=== PATIENT | female | born 1975 | race Caucasian/White ===

== ENCOUNTER 2024-08-26 17:43 | Emergency (ER) | payer BC, SELFPAY ==
[2024-08-26 17:47] VITALS: BP 112/71; PULSE 84; RESP 18; TEMP 36.9; O2SAT 95; BMI 26.2
--- NOTE | 2024-08-26 18:20 | PC.NURSE ---
[facility] AT BEDSIDE
--- NOTE | 2024-08-26 18:27 | ECG_ITS ---
APPROVED REPORT Exam: Resting ECG HR:86 bpm ECG Measurements Heart Rate 86 AXES AK 125 P 68 QRSd 90 QRS 67 QT 353 T 54 QTc 397 Conclusion SINUS RHYTHM POSSIBLE RIGHT ATRIAL ENLARGEMENT [0.25mV P-WAVE] POSSIBLE LEFT ATRIAL ENLARGEMENT [-0.1mV P-WAVE IN V1/V2] BORDERLINE ECG Electronically signed by : [place] PARDO, 08/27/2024 00:37:25
[2024-08-26 18:41] LABS: Coronavirus 19, PCR Not Detected (NotDetected); Influenza A, PCR Not Detected (NotDetected); Influenza B, PCR Not Detected (NotDetected)
[2024-08-26 18:45] LABS: Basophils # 0.1 K/mm3 (0-0.2); Basophils % 1.3 % (0.1-2.0); Eosinophils # 0.5 K/mm3 (0.0-0.4); Eosinophils % 5.9 % (0.1-12.0); Hematocrit 44.2 % (37.0-47.0); Hemoglobin 15.2 g/dL (12.2-16.2); Lymphocytes # 3.1 K/mm3 (0.7-4.5); Lymphocytes % 39.3 % (10-50); Mean Corpuscular HGB Conc 34.4 g/dL (31.8-35.4); Mean Corpuscular Volume 93.1 fl (81-99); Mean Platelet Volume 9.9 fl (7.4-10.4); Monocytes # 0.4 K/mm3 (0.1-1.0); Monocytes % 4.8 % (1.7-9.3); Neutrophils # 3.8 K/mm3 (1.8-7.8); Neutrophils % 48.4 % (37.0-80.0); Platelet Count 342 K/mm3 (142-424); Red Blood Count 4.75 M/mm3 (4.20-5.40); Red Cell Distribution Width 13.6 % (11.5-17.5); White Blood Count 7.9 K/mm3 (4.8-10.8)
[2024-08-26] MEDS: 0.9 % SODIUM CHLORIDE 1000ML 1,000 ML 999 ML IV (18:49)
[2024-08-26] MEDS: ACETAMINOPHEN 1,000MG/100ML VIAL 1000 MG IV (18:49)
[2024-08-26] MEDS: ALUMINUM/MAGNESIUM/SIMETHICONE 30ML UDC 30 ML PO (18:49)
--- NOTE | 2024-08-26 18:49 | ED_ITS ---
Discharge Plan Disposition Patient Disposition: Home, Self-Care Referrals Follow up/Referrals: Georgina Henry APRN [Primary Care Provider] - See instructions Nelson Burnham MD [Staff Physician] - See instructions Activity Restrictions/Add. Instructions Additional Instructions/Restrictions: At this time it was felt you are safe to be discharged home. If new or worsening symptoms please do not hesitate to return the emergency department. As discussed if your symptoms persist or get worse in any way please follow-up with your family doctor, if they get worse you come back and see me immediately. Please call and schedule appoint with Dr. Burnham for evaluation of your chest pain. Clinical Impressions Clinical Impression: Benign paroxysmal positional vertigo, Dizziness, Chest pain Print Language Print Language: Occitan Discharge ED Provider: Sam Caceres General Adult HPI <Agustina Hummel (ED), MANAGER TRAINING [employer] DEVELOPMENT - Last Filed: 08/26/24 21:39> General Chief complaint: Dizziness Stated complaint: dizzy , headache,nausea Time Seen by Provider: 08/26/24 18:13 Mode of Arrival: Wheelchair Source of Information: Patient and Spouse Limitations: No Limitations Description of Symptoms (Recalled from ER Triage Doc. by RN): PT REPORTS WAKING WITH DIZZINESS, RECENT SORE THROAT, CONGESTION, RUNNY NOSE AND COUGHING SINCE WEDNESDAY. PT REPORTS FEVER. REPORTS HEAVINESS IN HER CHEST THAT RADIATES DOWN THE BACK OF HER RIGHT ARM, REPORTS FREQUENT HEARTBURN FOR A LONG TIME History of Present Illness HPI narrative: This is a 49-year-old female who presents to the ED after she woke up this morning with dizziness. She says she started on with sore throat, congestion, runny nose and coughing. She had a fever earlier in the week. She has some heaviness in her chest now and radiating down the back of her right arm. She has had heartburn as well. She has no history of heart disease, no hypertension and no lung disease. She has had a spinal cord injury from lifting. She has had a neck fusion. She typically has a low blood pressure. No other associated signs or symptoms. Related Data Allergies Allergy/AdvReac Type Severity Reaction Status Date / Time tomato Allergy Other Verified 08/26/24 18:31 PFSH <Agustina Hummel (ED), MANAGER TRA[employer]ING [employer] DEVELOPMENT - Last Filed: 08/26/24 21:39> PFSH Disclaimer: The information contained in this section may have been updated after the patient was seen, as this information can be updated by other users. Social History (Updated 08/26/24 @ 20:42 by Agustina Hummel (ED), MANAGER TRA[employer]ING [employer] DEVELOPMENT) Smoking Status: Current every day smoker alcohol intake: former current occupational status: other Travel in the last 8 weeks: None Have you lived/traveled outside US in past 30 days?: No Contact w/someone who lives/traveled outside US past 30 days?: No Exposure to someone with infectious disease in past 14 days?: No Do you have a fever (greater than 100.4 F or 38 C)?: No Have you tested positive for COVID-19: No Exposed to someone with COVID-19 in past 14 days?: No Do you have a sore throat?: No Do you have a cough?: No Do you have any weakness?: Yes Do you have any diarrhea?: No Are you experiencing any unusual bleeding?: No Do you have any muscle aches/pain?: No Do you have any abdominal pain?: No Are you experiencing loss of taste or smell?: No <Agustina Hummel (ED), MANAGER TRAINING [employer] DEVELOPMENT - Last Filed: 08/26/24 21:39> ROS Obtained: Yes Systems reviewed as appropriate & no additional complaints except as documented Constitutional Constitutional: Reports as per HPI Physical Exam <Agustina Hummel (ED), MANAGER TRAINING [employer] DEVELOPMENT - Last Filed: 08/26/24 21:39> General General appearance: alert and anxious Head Head exam: normocephalic Eye Eye exam: Present normal appearance and PERRL ENT ENT exam: Present mucous membranes moist Neck Neck exam: Present normal inspection and trachea midline Chest Chest inspection: Present normal inspection and symmetric chest wall rise Respiratory Respiratory exam: Present normal lung sounds bilaterally Cardiovascular Cardiovascular exam: Present regular rate, normal rhythm, normal heart sounds, +S1 and +S2 Abdominal Exam Abdominal exam: Present soft and normal bowel sounds Extremities Exam Extremities exam: Present normal inspection and normal capillary refill Back Exam Back exam: Present full ROM Neurological Exam Neurological exam: Present alert, oriented X3 and normal gait Psychiatric Psychiatric exam: Present normal affect and normal mood Skin Skin exam: Present warm and dry Medical Decision Making <Agustina Hummel (ED), MANAGER TRA[employer]ING [employer] DEVELOPMENT - Last Filed: 08/26/24 21:39> Medical Records Screening: Per USPSTF and CDC recommendations, given the prevalence of disease in our region, it is our hospital?s policy to screen for HIV and viral Hepatitis for all patients aged 18 and over and those with ongoing risk factors. Todd Inquiry Pt receiving controlled substance: No Vital Signs: 08/26/24 17:47 08/26/24 19:00 08/26/24 19:30 Temperature 98.5 F Temperature Source Oral Pulse Rate 77 81 Pulse Rate [Apical] 84 Respiratory Rate 18 24 26 H Blood Pressure 94/63 L 116/78 Blood Pressure [Right Arm] 112/71 Blood Pressure Mean [Right Arm] 84 Blood Pressure Source [Right Arm] Automatic Cuff Blood Pressure Position [Right Arm] Sitting 02 Sat by Pulse Oximetry 95 93 L 94 L Oxygen Delivery Method Room Air 08/26/24 21:47 Temperature 98 F Temperature Source Pulse Rate 75 Pulse Rate [Apical] Respiratory Rate 18 Blood Pressure 124/80 Blood Pressure [Right Arm] Blood Pressure Mean [Right Arm] Blood Pressure Source [Right Arm] Blood Pressure Position [Right Arm] 02 Sat by Pulse Oximetry Oxygen Delivery Method Room Air Lab Data Lab Results 08/26/24 18:16: SARS-CoV-2 (PCR) Not detected, Influenza A Untype (PCR) Not detected, Influenza Type B (PCR) Not detected 08/26/24 18:30: WBC 7.9, RBC 4.75, Hgb 15.2, Hct 44.2, MCV 93.1, MCH 32.0 H, MCHC 34.4, RDW 13.6, Plt Count 342, MPV 9.9, Neut % (Auto) 48.4, Lymph % (Auto) 39.3, [place] % (Auto) 4.8, Eos % (Auto) 5.9, Baso % (Auto) 1.3, Neut # (Auto) 3.8, Lymph # (Auto) 3.1, [place] # (Auto) 0.4, Eos # (Auto) 0.5 H, Baso # (Auto) 0.1, Sodium 140, Potassium 3.7, Chloride 107, Carbon Dioxide 26, Anion Gap 10.7, BUN 15, Creatinine 1.00, Estimated Creat Clear 62, Estimated GFR 58 L, Est GFR ( Amer) 71, Glucose 95, Calcium 9.1, Magnesium 1.9, Total Bilirubin 0.3, AST 32, ALT 19, Alkaline Phosphatase 72, Troponin I < 0.01, Total Protein 7.4, Albumin 4.3, Globulin 3.1, Albumin/Globulin Ratio 1.4 08/26/24 18:30 08/26/24 18:30 Orders (Tests/Meds): ED MEDICATIONS Discontinued Medications Generic Name Dose Route Start Last Admin Trade Name Freq PRN Reason Stop Dose Admin Acetaminophen 1,000 mg 08/26/24 18:32 08/26/24 18:49 Acetaminophen 1,000mg/100ml Vial IV 08/26/24 18:33 1,000 mg ONCE ONE Administration Al Hydrox/Mg Hydrox/Simethicone 30 ml 08/26/24 18:32 08/26/24 18:49 Aluminum/Magnesium/Simethicone 30ml Udc PO 08/26/24 18:33 30 ml ONCE ONE Administration Aspirin 324 mg 08/26/24 19:10 08/26/24 19:17 Aspirin 81mg Chewable Tablet PO 08/26/24 19:11 324 mg ONCE ONE Administration Sodium Chloride 1,000 mls @ 999 mls/hr 08/26/24 18:32 08/26/24 18:49 Sod Chlor 0.9% 1000ml Bag IV 08/26/24 19:32 999 mls/hr .Q1H1M ONE Administration Iopamidol 80 ml 08/26/24 19:46 08/26/24 19:47 Iopamidol-370 (76%);100ml Bottle IV 08/26/24 19:47 80 ml ONCE ONE Administration Meclizine HCl 25 mg 08/26/24 21:17 08/26/24 21:29 Meclizine 25mg Tablet PO 08/26/24 21:18 25 mg ONCE ONE Administration Sodium Chloride 50 ml 08/26/24 19:46 08/26/24 19:48 0.9 % Sodium Chloride 50 Ml Vial IV 08/26/24 19:47 50 ml ONCE ONE Administration Sodium Chloride 10 ml 08/26/24 19:46 08/26/24 19:47 Sodium Chloride 0.9% 10ml Syr (Rad Only) IV 09/25/24 19:45 10 ml NEEDED PRN Administration Maintain IV Site ORDERS Category Date Time Status CTA Chest [CT angio chest - dissection] Stat Cat Scan 08/26/24 19:35 Completed CXR --portable [XR chest portable] Stat Exams 08/26/24 19:08 Completed Complete Blood Count Auto Diff Stat Lab 08/26/24 18:30 Completed Comprehensive Metabolic Panel Stat Lab 08/26/24 18:30 Completed D-Dimer Stat Lab 08/26/24 18:35 Received Magnesium Stat Lab 08/26/24 18:30 Completed Rapid PCR Covid and Flu A/B Stat Lab 08/26/24 18:16 Completed Troponin I Stat Lab 08/26/24 18:30 Completed Medical Decision Narrative: Insert review patient is a 49-year-old female presenting to the emergency department for evaluation of dizziness, chest pain that moves down her left arm. Patient is hemodynamically stable and nontoxic-appearing upon arrival, afebrile. Differential diagnosis includes vertigo, blood pressure changes, stroke, among others. Workup will be conducted with hematologic labs, specific imaging, provocative tests. Initial inventions include crystalloid bolus, labs. Initial workup reviewed by me and unremarkable. Imaging informally interpreted by me and remarkable for nothing acute. Formal imaging read remarkable see radiology report. Upon repeat evaluation patient's pain is improved, however patient continues to be dizzy. We did talk about vertigo and using meclizine to improve this vertigo. Also talked about reflux symptoms and taking Protonix or omeprazole continuously. I did have Dr. Caceres talk to the patient due to continued dizziness. See his note. <Sam Caceres MD - Last Filed: 08/27/24 00:12> Vital Signs: 08/26/24 17:47 08/26/24 19:00 08/26/24 19:30 Temperature 98.5 F Temperature Source Oral Pulse Rate 77 81 Pulse Rate [Apical] 84 Respiratory Rate 18 24 26 H Blood Pressure 94/63 L 116/78 Blood Pressure [Right Arm] 112/71 Blood Pressure Mean [Right Arm] 84 Blood Pressure Source [Right Arm] Automatic Cuff Blood Pressure Position [Right Arm] Sitting 02 Sat by Pulse Oximetry 95 93 L 94 L Oxygen Delivery Method Room Air 08/26/24 21:47 Temperature 98 F Temperature Source Pulse Rate 75 Pulse Rate [Apical] Respiratory Rate 18 Blood Pressure 124/80 Blood Pressure [Right Arm] Blood Pressure Mean [Right Arm] Blood Pressure Source [Right Arm] Blood Pressure Position [Right Arm] 02 Sat by Pulse Oximetry Oxygen Delivery Method Room Air Lab Data Lab Results 08/26/24 18:16: SARS-CoV-2 (PCR) Not detected, Influenza A Untype (PCR) Not detected, Influenza Type B (PCR) Not detected 08/26/24 18:30: WBC 7.9, RBC 4.75, Hgb 15.2, Hct 44.2, MCV 93.1, MCH 32.0 H, MCHC 34.4, RDW 13.6, Plt Count 342, MPV 9.9, Neut % (Auto) 48.4, Lymph % (Auto) 39.3, [place] % (Auto) 4.8, Eos % (Auto) 5.9, Baso % (Auto) 1.3, Neut # (Auto) 3.8, Lymph # (Auto) 3.1, [place] # (Auto) 0.4, Eos # (Auto) 0.5 H, Baso # (Auto) 0.1, Sodium 140, Potassium 3.7, Chloride 107, Carbon Dioxide 26, Anion Gap 10.7, BUN 15, Creatinine 1.00, Estimated Creat Clear 62, Estimated GFR 58 L, Est GFR ( Amer) 71, Glucose 95, Calcium 9.1, Magnesium 1.9, Total Bilirubin 0.3, AST 32, ALT 19, Alkaline Phosphatase 72, Troponin I < 0.01, Total Protein 7.4, Albumin 4.3, Globulin 3.1, Albumin/Globulin Ratio 1.4 Orders (Tests/Meds): ED MEDICATIONS Discontinued Medications Generic Name Dose Route Start Last Admin Trade Name Freq PRN Reason Stop Dose Admin Acetaminophen 1,000 mg 08/26/24 18:32 08/26/24 18:49 Acetaminophen 1,000mg/100ml Vial IV 08/26/24 18:33 1,000 mg ONCE ONE Administration Al Hydrox/Mg Hydrox/Simethicone 30 ml 08/26/24 18:32 08/26/24 18:49 Aluminum/Magnesium/Simethicone 30ml Udc PO 08/26/24 18:33 30 ml ONCE ONE Administration Aspirin 324 mg 08/26/24 19:10 08/26/24 19:17 Aspirin 81mg Chewable Tablet PO 08/26/24 19:11 324 mg ONCE ONE Administration Sodium Chloride 1,000 mls @ 999 mls/hr 08/26/24 18:32 08/26/24 18:49 Sod Chlor 0.9% 1000ml Bag IV 08/26/24 19:32 999 mls/hr .Q1H1M ONE Administration Iopamidol 80 ml 08/26/24 19:46 08/26/24 19:47 Iopamidol-370 (76%);100ml Bottle IV 08/26/24 19:47 80 ml ONCE ONE Administration Meclizine HCl 25 mg 08/26/24 21:17 08/26/24 21:29 Meclizine 25mg Tablet PO 08/26/24 21:18 25 mg ONCE ONE Administration Sodium Chloride 50 ml 08/26/24 19:46 08/26/24 19:48 0.9 % Sodium Chloride 50 Ml Vial IV 08/26/24 19:47 50 ml ONCE ONE Administration Sodium Chloride 10 ml 08/26/24 19:46 08/26/24 19:47 Sodium Chloride 0.9% 10ml Syr (Rad Only) IV 09/25/24 19:45 10 ml NEEDED PRN Administration Maintain IV Site ORDERS Category Date Time Status CTA Chest [CT angio chest - dissection] Stat Cat Scan 08/26/24 19:35 Completed CXR --portable [XR chest portable] Stat Exams 08/26/24 19:08 Completed Complete Blood Count Auto Diff Stat Lab 08/26/24 18:30 Completed Comprehensive Metabolic Panel Stat Lab 08/26/24 18:30 Completed D-Dimer Stat Lab 08/26/24 18:35 Received Magnesium Stat Lab 08/26/24 18:30 Completed Rapid PCR Covid and Flu A/B Stat Lab 08/26/24 18:16 Completed Troponin I Stat Lab 08/26/24 18:30 Completed ECG Data Tracing #1: Independently interpreted by me rate is 86, rhythm is regular, axis is normal, no ST elevation in anatomical contiguous leads, QTc 397. Medical Decision Narrative: Insert review patient is a 49-year-old female presenting to the emergency department for evaluation of dizziness, chest pain that moves down her left arm. Patient is hemodynamically stable and nontoxic-appearing upon arrival, afebrile. Differential diagnosis includes vertigo, blood pressure changes, stroke, among others. Workup will be conducted with hematologic labs, specific imaging, provocative tests. Initial inventions include crystalloid bolus, labs. Initial workup reviewed by me and unremarkable. Imaging informally interpreted by me and remarkable for nothing acute. Formal imaging read remarkable see radiology report. Upon repeat evaluation patient's pain is improved, however patient continues to be dizzy. We did talk about vertigo and using meclizine to improve this vertigo. Also talked about reflux symptoms and taking Protonix or omeprazole continuously. I did have Dr. Caceres talk to the patient due to continued dizziness. See his note. I was consulted by the EVANGELIST, and we discussed the complexity of the problems being addressed. I approved the treatment and management plan for this patient's care in the emergency department, thus performing a substantive portion of the medical decision making. Patient presented with chest pain that have been going on for longer than 6 hours and workup with hematologic labs, troponin, EKG, CTA chest nonactionable. Going into evaluate the patient she was much more concerned about her dizziness. I had prolonged discussion with patient. She has had some upper respiratory symptoms recently and then over the last 24 to 48 hours has had positional dizziness that is worse with leaning over and turning her head to the left. No falls and is able to ambulate freely. Ryan-Hallpike maneuver performed at bedside with torsional nystagmus on the left which extinguished after laying there for couple minutes. No torsional nystagmus on the right. [id number] intact. No intracranial imaging had been conducted however I had prolonged shared decision making discussion at bedside with patient and offered intracranial imaging versus expectant management with strict return precautions and patient is ready to go home and is appropriate for discharge at this time. Given that this lines up with BPPV I think this is appropriate and patient was discharged in stable condition. Sam Caceres MD Critical Care <Agustina Hummel (ED), MANAGER TRAINING AND DEVELOPMENT - Last Filed: 08/26/24 21:39> Critical Care Time Critical Care Time: No
[2024-08-26 18:52] LABS: Albumin Level 4.3 g/dl (3.5-5.0); Chloride 107 mmol/L (98-107); Potassium 3.7 mmoL/L (3.5-5.1); Sodium 140 mmol/L (136-145)
[2024-08-26 18:55] LABS: Alanine Aminotransferase 19 U/L (12-78); Albumin/Globulin Ratio 1.4 (1.1-1.8); Alkaline Phosphatase 72 U/L (38-126); Anion Gap 10.7 mEq/L (5-15); Aspartate Amino Transferase 32 U/L (14-36); Bilirubin,Total 0.3 mg/dl (0.2-1.3); Blood Urea Nitrogen 15 mg/dl (7-17); Calcium 9.1 mg/dl (8.4-10.2); Carbon Dioxide 26 mmol/L (22.0-30.0); Creatinine Clearance Estimated 62 mL/min (50-200); Estimated Glomerular Filt Rate 58 ml/min (>60); GFR (African American) 71 ML/MIN (>60); Globulin 3.1 g/dL (1.3-3.2); Glucose 95 mg/dl (74-100); Magnesium 1.9 mg/dl (1.6-2.3); Total Protein,Serum 7.4 g/dl (6.3-8.2)
[2024-08-26 19:00] VITALS: BP 94/63; PULSE 77; RESP 24; O2SAT 93
--- NOTE | 2024-08-26 19:08 | XR_ITS ---
PROCEDURE INFORMATION: Exam: XR Chest Exam date and time: 08/26/2024 7:17 PM Age: 49 years old Clinical indication: Pain; Chest pressure; Additional info: Cp, dizziness TECHNIQUE: Imaging protocol: Radiologic exam of the chest. Views: 1 view. COMPARISON: No relevant prior studies available. FINDINGS: Lungs: Pulmonary vascular congestion with mild interstitial pulmonary edema. Patchy airspace opacities in the lung bases. Pleural spaces: No visible pleural effusion. No pneumothorax. Heart/Mediastinum: Cardiomediastinal silouhette is within normal limits. Bones/joints: No evidence of acute osseous abnormality. IMPRESSION: 1. Pulmonary vascular congestion with mild interstitial pulmonary edema. 2. Patchy airspace opacities in the lung bases. Findings may represent atelectasis, pulmonary edema or infiltrates.
[2024-08-26] MEDS: ASPIRIN 81MG CHEWABLE TABLET 324 MG PO (19:17)
[2024-08-26 19:27] LABS: Troponin I < 0.01 ng/ml (0.00-0.034)
[2024-08-26 19:30] VITALS: BP 116/78; PULSE 81; RESP 26; O2SAT 94
--- NOTE | 2024-08-26 19:35 | CT_ITS ---
PROCEDURE INFORMATION: Exam: CTA Chest With Contrast Exam date and time: 08/26/2024 7:46 PM Age: 49 years old Clinical indication: Chest wall pain; Additional info: Chest pain, dizziness TECHNIQUE: Imaging protocol: Computed tomographic angiography of the chest with contrast. Exam focused on the arteries. 3D rendering (Not supervised by radiologist): MIP and/or 3D reconstructed images were created by the technologist. Radiation optimization: All CT scans at this facility use at least one of these dose optimization techniques: automated exposure control; mA and/or kV adjustment per patient size (includes targeted exams where dose is matched to clinical indication); or iterative reconstruction. Contrast material: ISOVUE 370; Contrast volume: 80 ml; Contrast route: INTRAVENOUS (IV); COMPARISON: CR XR CHEST PORTABLE 08/26/2024 7:17 PM FINDINGS: Pulmonary arteries: No evidence of pulmonary embolism. Aorta: No aortic aneurysm. No evidence of thoracic aortic aneurysm or dissection. Lungs: Mild paraseptal and centrilobular emphysematous changes, upper lobe predominant. Pulmonary vascular congestion and interstitial pulmonary edema. Subsegmental atelectasis/scarring in the lung bases. No evidence of pulmonary infiltrate. Calcified pulmonary granuloma in the right lower lobe consistent with chronic sequelae of prior granulomatous disease. Pleural spaces: No pneumothorax. No pleural effusion. Heart: Mild biatrial enlargement suggestive of diastolic heart dysfunction. No pericardial effusion. Coronary arteries: No visible calcific coronary artery disease. Lymph nodes: Calcified mediastinal lymph nodes consistent with chronic sequelae of prior granulomatous disease. Bones/joints: No acute osseous abnormality. Soft tissues: Unremarkable. IMPRESSION: 1. No evidence of pulmonary embolism. 2. Pulmonary vascular congestion and interstitial pulmonary edema. 3. Mild biatrial enlargement suggestive of diastolic heart dysfunction. 4. Emphysema. COMMENTS: The presence of pulmonary emphysema on CT is an independent risk factor for lung cancer. In the absence of a history or active diagnosis of lung cancer, it is recommended that this patient with emphysema be evaluated for enrollment in a low dose CT lung cancer screening program.
[2024-08-26] MEDS: IOPAMIDOL-370 (76%);100ML BOTTLE 80 ML IV (19:47)
[2024-08-26] MEDS: SODIUM CHLORIDE 0.9% 10ML SYR (RAD ONLY) 10 ML IV (19:47)
[2024-08-26] MEDS: 0.9 % SODIUM CHLORIDE 50 ML VIAL IV (19:48)
[2024-08-26] MEDS: MECLIZINE 25MG TABLET 25 MG PO (21:29)
[2024-08-26 21:47] VITALS: BP 124/80; PULSE 75; RESP 18; TEMP 36.6; O2SAT 95
[2024-08-27 00:06] LABS: D-Dimer 0.44 ug/mL (0.0-0.5)
== END 2024-08-26 21:49 | disposition home or self-care (01) ==
PROVIDERS: Nurse Practitioner; Emergency Provider Emergency Medicine; PCP Nurse Practitioner Family
DX: H81.10 Benign paroxysmal vertigo, unspecified ear (principal); R09.81 Nasal congestion; R05.9 Cough, unspecified; R50.9 Fever, unspecified; R09.89 Other specified symptoms and signs involving the circulatory and respiratory systems; R51.9 Headache, unspecified; J02.9 Acute pharyngitis, unspecified; R12 Heartburn; R07.9 Chest pain, unspecified
CPT/HCPCS: 71045; 71275; 80053; 83735; 84484; 85025; 85378; 87636; 93005; 96361; 96374; 99285; J0131; J7030; Q9967

== ENCOUNTER 2024-08-28 17:57 | Emergency (ER) | payer BC, SELFPAY ==
[2024-08-28 17:59] VITALS: BMI 27.3
[2024-08-28 18:02] VITALS: BP 143/87; PULSE 85; RESP 16; TEMP 36.6; O2SAT 97; BMI 39.5
--- NOTE | 2024-08-28 18:17 | CT_ITS ---
PROCEDURE INFORMATION: Exam: CTA Head With Contrast, Venography Exam date and time: 08/28/2024 6:29 PM Age: 49 years old Clinical indication: Vertigo; Additional info: Uri/vertigo TECHNIQUE: Imaging protocol: Computed tomography angiography of the head with contrast. Exam focused on the veins. 3D rendering (Not supervised by radiologist): MIP and/or 3D reconstructed images were created by the technologist. Radiation optimization: All CT scans at this facility use at least one of these dose optimization techniques: automated exposure control; mA and/or kV adjustment per patient size (includes targeted exams where dose is matched to clinical indication); or iterative reconstruction. Contrast material: ISOVUE 370; Contrast volume: 80 ml; Contrast route: INTRAVENOUS (IV); COMPARISON: CT ANGIO HEAD 08/28/2024 6:29 PM FINDINGS: Superior sagittal sinus: Patent. Straight sinus: Patent. Transverse sinuses: Patent. Sigmoid sinuses: Patent. Internal jugular veins: Limited visualized internal jugular veins are patent. Brain: No definite mass, mass effect, or midline shift. Cerebral ventricles: No ventriculomegaly. Soft tissues: Unremarkable. IMPRESSION: No venous thrombosis.
--- NOTE | 2024-08-28 18:17 | CT_ITS ---
PROCEDURE INFORMATION: Exam: CTA Neck With Contrast Exam date and time: 08/28/2024 6:29 PM Age: 49 years old Clinical indication: Vertigo; Additional info: Vertigo word finding problems TECHNIQUE: Imaging protocol: Computed tomographic angiography of the neck with contrast. Exam focused on the cervical segments of the vasculature. 3D rendering (Not supervised by radiologist): MIP and/or 3D reconstructed images were created by the technologist. Radiation optimization: All CT scans at this facility use at least one of these dose optimization techniques: automated exposure control; mA and/or kV adjustment per patient size (includes targeted exams where dose is matched to clinical indication); or iterative reconstruction. Contrast material: ISOVUE 370; Contrast volume: 80 ml; Contrast route: INTRAVENOUS (IV); COMPARISON: CT ANGIO HEAD 08/28/2024 6:29 PM FINDINGS: Right common carotid artery: No stenosis. No dissection or occlusion. Right internal carotid artery: No stenosis of the extracranial segment. No dissection or occlusion. Right external carotid artery: No occlusion or stenosis of the origin. Left common carotid artery: Minimal atherosclerosis at the origin and carotid bulb without flow-limiting stenosis. No dissection or occlusion. Left internal carotid artery: No stenosis of the extracranial segment. No dissection or occlusion. Left external carotid artery: No occlusion or stenosis of the origin. Right vertebral artery: No stenosis. No dissection or occlusion. Left vertebral artery: No stenosis. No dissection or occlusion. Soft tissues: Unremarkable. Bones/joints: Degenerative changes. C5-C6 anterior cervical fusion hardware. Additional interbody spacer at C4-C5. IMPRESSION: No stenosis or occlusion. No dissection. REFERENCES: NASCET CRITERIA. The degree of stenosis in the cervical segment of the internal carotid artery is based on NASCET criteria. Normal is no stenosis. Mild is less than 50% stenosis. Moderate is 50-69% stenosis. Severe is 70% to 99% stenosis. Total occlusion is no detectable patent lumen.
--- NOTE | 2024-08-28 18:17 | CT_ITS ---
PROCEDURE INFORMATION: Exam: CT Head Without Contrast Exam date and time: 08/28/2024 6:26 PM Age: 49 years old Clinical indication: Speech disturbance; Additional info: Vertigo word finding problems TECHNIQUE: Imaging protocol: Computed tomography of the head without contrast. Total images: 268 Radiation optimization: All CT scans at this facility use at least one of these dose optimization techniques: automated exposure control; mA and/or kV adjustment per patient size (includes targeted exams where dose is matched to clinical indication); or iterative reconstruction. COMPARISON: No relevant prior studies available. FINDINGS: Brain: No acute intracranial hemorrhage, midline shift, or mass. Very mild white matter heterogeneity implying remote small vessel ischemic change. Shultz-white interface and basilar cisterns are preserved. Cerebral ventricles: No ventriculomegaly. Paranasal sinuses: Minor mucosal thickening base of the right frontal sinus. Tiny polyp or retention cyst right maxillary sinus. No air-fluid levels. Mastoid air cells: Visualized mastoid air cells are well aerated. Bones: Unremarkable. No acute fracture. Soft tissues: Unremarkable. IMPRESSION: No acute intracranial process.
--- NOTE | 2024-08-28 18:17 | CT_ITS ---
PROCEDURE INFORMATION: Exam: CTA Head With Contrast, Arteriography Exam date and time: 08/28/2024 6:29 PM Age: 49 years old Clinical indication: Vertigo; Additional info: Vertigo word finding problems TECHNIQUE: Imaging protocol: Computed tomographic angiography of the head with contrast. Exam focused on the arteries. 3D rendering (Not supervised by radiologist): MIP and/or 3D reconstructed images were created by the technologist. Radiation optimization: All CT scans at this facility use at least one of these dose optimization techniques: automated exposure control; mA and/or kV adjustment per patient size (includes targeted exams where dose is matched to clinical indication); or iterative reconstruction. Contrast material: ISOVUE 370; Contrast volume: 80 ml; Contrast route: INTRAVENOUS (IV); COMPARISON: CT VENOGRAM HEAD 08/28/2024 6:29 PM FINDINGS: ANTERIOR CIRCULATION: Right internal carotid artery: Intracranial segment is patent with no significant stenosis. No aneurysm. Right middle cerebral artery: No occlusion or significant stenosis. No aneurysm. Right anterior cerebral artery: No occlusion or significant stenosis. No aneurysm. Left internal carotid artery: Minimal atherosclerotic narrowing of the intracranial segment without flow-limiting stenosis. No aneurysm. Left middle cerebral artery: No occlusion or significant stenosis. No aneurysm. Left anterior cerebral artery: No occlusion or significant stenosis. No aneurysm. POSTERIOR CIRCULATION: Right vertebral artery: No occlusion or significant stenosis. No aneurysm. Left vertebral artery: No occlusion or significant stenosis. No aneurysm. Basilar artery: No occlusion or significant stenosis. No aneurysm. Right posterior cerebral artery: No occlusion or significant stenosis. No aneurysm. Left posterior cerebral artery: No occlusion or significant stenosis. No aneurysm. Brain: No definite mass, mass effect, or midline shift. Cerebral ventricles: No ventriculomegaly. Bones/joints: Unremarkable. No acute fracture. Soft tissues: Unremarkable. IMPRESSION: No large vessel stenosis or occlusion.
--- NOTE | 2024-08-28 18:18 | ED_ITS ---
Discharge Plan Disposition Patient Disposition: Home, Self-Care Chief Complaint: Dizziness Referrals Follow up/Referrals: Georgina Henry APRN [Primary Care Provider] - See instructions Activity Restrictions/Add. Instructions Additional Instructions/Restrictions: At this time it was felt you are safe to be discharged home. If new or worsening symptoms please do not hesitate to return the emergency department. As discussed if your vertigo goes on for longer than a couple of weeks it may be time to get an MRI. If any new symptoms develop or you become concerned please return here for continued evaluations. Clinical Impressions Clinical Impression: Vertigo Print Language Print Language: Estonian Discharge ED Provider: Sam Caceres General Adult HPI General Chief complaint: Dizziness Stated complaint: poss vertigo, dizzy Time Seen by Provider: 08/28/24 18:00 History of Present Illness HPI narrative: Patient is a 49-year-old female who I saw recently who presents emergency department as a transfer patient from clinic for evaluation of vertigo. I remember this patient well. She was seen recently where she had acute onset vertigo with proceeding respiratory illness, had torsional nystagmus with lying on the left and I diagnosed her with BPPV and she was discharged. Since then she states she has had some improvement in her vertiginous symptoms however she followed up with her PCP today and had some difficulty word finding causing PCP to refer her here for subsequent evaluation. No falls, no visual complaints, no extremity complaints. No other acute complaints at this time. Of note she has a little bit to her story stating that last week sometime she struck her head on a piece of steel while standing up at work, did not knock herself out, has not had a headache since, no vomiting. Related Data Allergies Allergy/AdvReac Type Severity Reaction Status Date / Time tomato Allergy Other Verified 08/28/24 08:02 [facility] Disclaimer: The information contained in this section may have been updated after the patient was seen, as this information can be updated by other users. Social History (System 08/28/24 @ 08:02 by Amanda Banuelso) Smoking Status: Current every day smoker tobacco type: cigarettes packs per day: 1 alcohol intake: former substance use type: denies use current occupational status: other Travel in the last 8 weeks: None number of children: 2 Have you lived/traveled outside [place] in past 30 days?: No Contact w/someone who lives/traveled outside [place] past 30 days?: No Exposure to someone with infectious disease in past 14 days?: No Do you have a fever (greater than 100.4 F or 38 C)?: No Have you tested positive for COVID-19: No Exposed to someone with COVID-19 in past 14 days?: No Do you have a sore throat?: No Do you have a cough?: No Do you have any weakness?: No Do you have any diarrhea?: No Are you experiencing any unusual bleeding?: No Do you have any muscle aches/pain?: No Do you have any abdominal pain?: No Are you experiencing loss of taste or smell?: No Other Medical History Have you received the Pneumonia Vaccine: No ROS Obtained: Yes Systems reviewed as appropriate & no additional complaints except as documented Physical Exam General General appearance: alert and in no apparent distress Head Head exam: atraumatic and normocephalic Eye Eye exam: Present PERRL and EOMI ENT ENT exam: Present mucous membranes moist Neck Neck exam: Present normal inspection Chest Chest inspection: Present normal inspection and symmetric chest wall rise Respiratory Respiratory exam: Present normal lung sounds bilaterally; Absent respiratory distress Cardiovascular Cardiovascular exam: Present regular rate and normal rhythm Abdominal Exam Abdominal exam: Present soft; Absent tenderness Extremities Exam Extremities exam: Present normal inspection Neurological Exam Neurological exam: Present alert, oriented X3, CN II-XII intact and normal gait; Absent motor sensory deficit Psychiatric Psychiatric exam: Present normal affect Skin Skin exam: Present warm and dry Medical Decision Making Medical Records Screening: Per USPSTF and CDC recommendations, given the prevalence of disease in our region, it is our hospital?s policy to screen for HIV and viral Hepatitis for all patients aged 18 and over and those with ongoing risk factors. Todd Inquiry Pt receiving controlled substance: No Vital Signs: 08/28/24 18:02 Temperature 97.8 F Temperature Source Temporal Artery Scan Pulse Rate [Right] 85 Respiratory Rate 16 Blood Pressure [Left Arm] 143/87 H Blood Pressure Mean [Left Arm] 105 Blood Pressure Source [Left Arm] Automatic Cuff 02 Sat by Pulse Oximetry 97 Oxygen Delivery Method Room Air Lab Data Lab Results 08/28/24 18:14: WBC 11.7 H D, RBC 4.89, Hgb 15.7, Hct 45.4, MCV 92.8, MCH 32.1 H , MCHC 34.6, RDW 13.6, Plt Count 346, MPV 9.8, Neut % (Auto) 64.2, Lymph % (Auto) 26.8, Upton % (Auto) 4.4, Eos % (Auto) 3.1, Baso % (Auto) 1.2, Neut # (Auto) 7.5, Lymph # (Auto) 3.1, Upton # (Auto) 0.5, Eos # (Auto) 0.4, Baso # (Auto) 0.1, Sodium 142, Potassium 3.8, Chloride 104, Carbon Dioxide 26, Anion Gap 15.8 H, BUN 18 H, Creatinine 1.00, Estimated Creat Clear 67, Estimated GFR 58 L, Est GFR ( Amer) 71, Glucose 114 H, Calcium 9.4, Magnesium 1.9, Total Bilirubin 0.3, AST 28, ALT 18, Alkaline Phosphatase 75, Total Protein 7.9, Albumin 4.6, Globulin 3.3 H, Albumin/Globulin Ratio 1.4 08/28/24 18:14 08/28/24 18:14 Orders (Tests/Meds): ED MEDICATIONS Discontinued Medications Generic Name Dose Route Start Last Admin Trade Name Freq PRN Reason Stop Dose Admin Iopamidol 80 ml 08/28/24 18:26 08/28/24 18:29 Iopamidol-370 (76%);100ml Bottle IV 08/28/24 18:27 80 ml ONCE ONE Administration Sodium Chloride 10 ml 08/28/24 18:26 08/28/24 18:28 Sodium Chloride 0.9% 10ml Syr (Rad Only) IV 08/28/24 18:27 10 ml ONCE ONE Administration Sodium Chloride 50 ml 08/28/24 18:26 08/28/24 18:28 0.9 % Sodium Chloride 50 Ml Vial IV 08/28/24 18:27 50 ml ONCE ONE Administration ORDERS Category Date Time Status CT Venogram head Stat Cat Scan 08/28/24 18:[address] angio head Stat Cat Scan 08/28/24 18:[address] angio neck Stat Cat Scan 08/28/24 18:[address] head/brain wo con Stat Cat Scan 08/28/24 18:17 Completed CBC w/Auto Diff [Complete Blood Count Auto Diff] Stat Lab 08/28/24 18:14 Completed CMP [Comprehensive Metabolic Panel] Stat Lab 08/28/24 18:14 Completed HIV Combo Stat Lab 08/28/24 18:14 Received Hepatitis C Ab Qual. W/ RFX Stat Lab 08/28/24 18:14 Received MG [Magnesium] Stat Lab 08/28/24 18:14 Completed Medical Decision Narrative: In summary patient is a 49-year-old female past medical history described above presents emergency department for evaluation of continued vertigo. Patient is hemodynamically stable nontoxic-appearing upon arrival, afebrile with a nonfocal neurologic exam. Given second valuation for vertigo intracranial imaging at this point is warranted. Workup will be conducted with hematologic labs, CT venogram, noncontrasted CT scan of the head, CT of the head neck. Differential occludes venous sinus thrombosis, cervical artery dissection, intracranial hemorrhage, CVA, among others. Given duration of symptoms I would expect to see CVA on CT scan by now. No initial interventions are indicated although they were considered. He initial workup reviewed by me, hematologic labs are nonactionable, no significant leukocytosis, no NUBIA or critical electrolyte abnormality. CT imaging noncontrast informally interpreted by me, no large acute intracranial hemorrhage or mass. Formal read of all CT imaging no acute pathology. Upon repeat evaluation patient was ambulatory at bedside. Given this I believe her symptoms align up with either BPPV or vestibular neuritis in the setting of her upper respiratory infection. I would expect CVA to show up by now given the duration of time on CT imaging. Given this patient is appropriate for outpatient management at this time was given multiple return precautions and verbalized understanding. Critical Care Critical Care Time Critical Care Time: No
--- NOTE | 2024-08-28 18:22 | HMH.ITSTN ---
GFR completion/results overrode by ER Physician on Risk vs. Benefit situation per [place], RN
[2024-08-28 18:23] LABS: Basophils # 0.1 K/mm3 (0-0.2); Basophils % 1.2 % (0.1-2.0); Eosinophils # 0.4 K/mm3 (0.0-0.4); Eosinophils % 3.1 % (0.1-12.0); Hematocrit 45.4 % (37.0-47.0); Hemoglobin 15.7 g/dL (12.2-16.2); Lymphocytes # 3.1 K/mm3 (0.7-4.5); Lymphocytes % 26.8 % (10-50); Mean Corpuscular HGB Conc 34.6 g/dL (31.8-35.4); Mean Corpuscular Hemoglobin 32.1 pg (27.0-31.2); Mean Corpuscular Volume 92.8 fl (81-99); Mean Platelet Volume 9.8 fl (7.4-10.4); Monocytes # 0.5 K/mm3 (0.1-1.0); Monocytes % 4.4 % (1.7-9.3); Neutrophils # 7.5 K/mm3 (1.8-7.8); Neutrophils % 64.2 % (37.0-80.0); Platelet Count 346 K/mm3 (142-424); Red Blood Count 4.89 M/mm3 (4.20-5.40); Red Cell Distribution Width 13.6 % (11.5-17.5); White Blood Count 11.7 K/mm3 (4.8-10.8)
--- NOTE | 2024-08-28 18:23 | PC.NURSE ---
pt gone to ct at this time via wheelchair
[2024-08-28 18:27] LABS: Albumin Level 4.6 g/dl (3.5-5.0); Chloride 104 mmol/L (98-107); Potassium 3.8 mmoL/L (3.5-5.1); Sodium 142 mmol/L (136-145)
[2024-08-28] MEDS: SODIUM CHLORIDE 0.9% 10ML SYR (RAD ONLY) 10 ML IV (18:28)
[2024-08-28] MEDS: 0.9 % SODIUM CHLORIDE 50 ML VIAL IV (18:28)
[2024-08-28 18:29] LABS: Anion Gap 15.8 mEq/L (5-15); Blood Urea Nitrogen 18 mg/dl (7-17); Carbon Dioxide 26 mmol/L (22.0-30.0); Creatinine Clearance Estimated 67 mL/min (50-200); Estimated Glomerular Filt Rate 58 ml/min (>60); GFR (African American) 71 ML/MIN (>60)
[2024-08-28] MEDS: IOPAMIDOL-370 (76%);100ML BOTTLE 80 ML IV (18:29)
[2024-08-28 18:30] LABS: Alanine Aminotransferase 18 U/L (12-78); Albumin/Globulin Ratio 1.4 (1.1-1.8); Alkaline Phosphatase 75 U/L (38-126); Aspartate Amino Transferase 28 U/L (14-36); Bilirubin,Total 0.3 mg/dl (0.2-1.3); Calcium 9.4 mg/dl (8.4-10.2); Globulin 3.3 g/dL (1.3-3.2); Glucose 114 mg/dl (74-100); Magnesium 1.9 mg/dl (1.6-2.3); Total Protein,Serum 7.9 g/dl (6.3-8.2)
[2024-08-28 20:12] LABS: HIV Combo NEGATIVE (Negative)
[2024-08-28 20:15] VITALS: BP 110/78; PULSE 82; RESP 18; TEMP 36.6; O2SAT 98
[2024-08-28 20:18] LABS: Hepatitis C Ab Qual. W/ RFX NEGATIVE (Negative)
== END 2024-08-28 20:17 | disposition home or self-care (01) ==
PROVIDERS: Emergency Provider Emergency Medicine; PCP Nurse Practitioner Family
DX: R42 Dizziness and giddiness (principal); R41.841 Cognitive communication deficit; W22.8XXA Striking against or struck by other objects, initial encounter; Y93.89 Activity, other specified; Y92.9 Unspecified place or not applicable
CPT/HCPCS: 70450; 70496; 70498; 80053; 83735; 85025; 86803; 87389; 99285; Q9967

== ENCOUNTER 2024-09-06 14:10 | Outpatient (CLI) | payer BC, SELFPAY ==
--- NOTE | 2024-09-06 | MR_ITS ---
FINAL REPORT CLINICAL HISTORY: DIZZY patent states she was sick several weeks ago accompanied with nausea and dizziness. she is no longer sick but is still dizzy and it worsens at night and when laying down COMPARISON: None FINDINGS: Multi planar MR imaging was obtained through the brain without contrast. The midline structures appear intact. There is no evidence of Chiari malformation. On T2 and flair axial images, the brain parenchyma contains a single focus of abnormal signal in the subcortical white matter, right frontal region, best seen on image #18 of series 5. On diffusion-weighted images there is no evidence of restricted diffusion. There is mild mucoperiosteal thickening in the right frontal sinus. The seventh and eighth nerve root complexes are intact. IMPRESSION: Single focus of increased subcortical signal as described in the right frontal region, likely ischemic microvascular change. Mild mucoperiosteal thickening in the right frontal sinus, consistent with chronic sinusitis. Reviewed, Interpreted and Dictated by Fox Epps MD Transcribed by Lara Mansfield Authenticated and [facility]
== END 2024-09-06 23:59 | disposition home or self-care (01) ==
LOC: RAD 14:11
PROVIDERS: PCP Nurse Practitioner Family; Visit Provider Nurse Practitioner Family
DX: R42 Dizziness and giddiness (principal)
CPT/HCPCS: 70551